=== PATIENT | female | born 1955 | race Two or more races ===

== ENCOUNTER 2021-06-13 21:05 | Emergency (ER) | payer MEDICARE ==
[~2021-06-13] VITALS: Ht 167.6 cm; Wt 76.0 kg
[2021-06-13 21:31] LABS: BASOPHILS % 0.5 % (0.0-2.0); EOSINOPHILS % 0.2 % (0.0-5.0); HEMATOCRIT. 41.7 % (36.0-48.0); LYMPHOCYTES % 7.3 % (20.0-50.0); MEAN CORPUSCULAR HEMOGLOBIN 33.3 pg (28.0-32.0); MEAN CORPUSCULAR VOLUME 99.3 fL (81.0-99.0); MEAN PLATELET VOLUME 9.4 fl (7.4-10.4); MONOCYTES % 5.9 % (2.0-8.0); NEUTROPHILS % 86.1 % (40.0-76.0); PLATELET 146 x1000/uL (130-400); RED CELL DISTRIBUTION WIDTH 13.7 % (11.6-14.6)
[2021-06-13 21:38] LABS: CHLORIDE 106 mEq/L (98-107)
[2021-06-13 21:43] LABS: ETHANOL BLOOD < 10 mg/dL
[2021-06-13 21:46] LABS: INR 1.3; LDL CHOLESTEROL 39 mg/dL (5-100); PROTHROMBIN TIME 13.9 sec (9.6-11.0)
[2021-06-13] MEDS ORDERED: NICARDIPINE 50 MG in SODIUM CHLORIDE 0.9% 230 ML IV PRN (22:15)
[2021-06-13] MEDS ORDERED: NICARDIPINE 40MG/200ML PREMIX 200 ML IV PRN (22:30)
[2021-06-13] MEDS ORDERED: IOHEXOL-350 100 ML BOTTLE ONE (22:50)
[2021-06-13] MEDS ORDERED: HUMAN PROTHROMBIN COMPLX (PCC) 500 UNITS VIAL IV NR (23:00)
[2021-06-14 00:28] VITALS: BP 163/85
== END 2021-06-14 00:47 | disposition short-term general hospital (02) ==
LOC: ER 21:05 → CANBEDREQ 06-14 07:03
DX: I61.8 Other nontraumatic intracerebral hemorrhage (principal); G40.909 Epilepsy, unspecified, not intractable, without status epilepticus; I10 Essential (primary) hypertension; Z86.73 Personal history of transient ischemic attack (TIA), and cerebral infarction without residual deficits
CPT/HCPCS: 36415; 70450; 70496; 70498; 71045; 80053; 80320; 83721; 84484; 85025; 85610; 85730; 87426; 93005; 96374; 99291; C9132; Q9967; J3490; J7050; G0480

== ENCOUNTER 2025-07-07 11:33 | Emergency (ER) | payer MEDICARE ==
[~2025-07-07] VITALS: Ht 165.1 cm; Wt 65.0 kg
[2025-07-07 11:36] VITALS: TEMP 97.4; O2SAT 98
[2025-07-07] MEDS: IOHEXOL-350 100 ML BOTTLE ONE (12:26)
[2025-07-07 12:57] LABS: BASOPHILS % 0.5 % (0.0-2.0); EOSINOPHILS % 1.0 % (0.0-5.0); HEMATOCRIT. 39.5 % (36.0-48.0); HEMOGLOBIN. 13.6 g/dL (12.0-16.0); LYMPHOCYTES % 21.3 % (20.0-50.0); MEAN PLATELET VOLUME 9.2 fl (7.4-10.4); MONOCYTES % 7.5 % (2.0-8.0); NEUTROPHILS % 69.7 % (40.0-76.0); PLATELET 186 x1000/uL (130-400); RED BLOOD CELL COUNT 4.19 mill/uL (4.2-5.4); RED CELL DISTRIBUTION WIDTH 13.0 % (11.6-14.6)
[2025-07-07 13:16] LABS: CREATININE 0.9 mg/dL (0.6-1.0)
[2025-07-07 13:17] LABS: ETHANOL BLOOD < 10 mg/dL (<10); UREA NITROGEN BLOOD 10 mg/dL (9-23)
[2025-07-07 13:19] LABS: ASPARTATE AMINOTRANSFERASE 19 IU/L (<34); BILIRUBIN DIRECT 0.2 mg/dL (<=3.0); BILIRUBIN TOTAL 0.5 mg/dL (0.1-1.0); PROTEIN TOTAL 6.1 g/dL (6.0-8.3)
[2025-07-07 13:21] LABS: INR 1.0
[2025-07-07] MEDS: LEVETIRACETAM 500MG PREMIX 100 ML IV ONE (13:53)
[2025-07-07 14:56] VITALS: BP 139/70; PULSE 85; RESP 16; O2SAT 99
== END 2025-07-07 14:56 | disposition home or self-care (01) ==
LOC: ER 11:33 → CANBEDREQ 14:33 → ER 14:56
DX: G40.909 Epilepsy, unspecified, not intractable, without status epilepticus (principal); I10 Essential (primary) hypertension; E11.9 Type 2 diabetes mellitus without complications; I48.91 Unspecified atrial fibrillation; Z86.73 Personal history of transient ischemic attack (TIA), and cerebral infarction without residual deficits; Z79.899 Other long term (current) drug therapy
CPT/HCPCS: 80076; 80048; 80320; 85025; 85610; 85730; 36415; 71045; 70496; 70498; 70450; 93005; 96365; 99285; Q9967; J1953; G0480